=== PATIENT | male | born 1960 | race Caucasian/White ===

== ENCOUNTER 2016-06-07 11:36 | Emergency (ER) | payer BC ==
--- NOTE | 2016-06-07 12:09 | UC ---
Respiratory Complaint HPI - HPI Summary HPI Summary: 55 yo male with PMH presents with c/o illness starting 3 days ago with nasal congestion, mild sore throat, generalized weakness/body aches, eyes burning, low energy, reports decreased appetite. Denies fever or chills. Has been able to eat normal consistency foods. No N/v/D. Denies dizziness, cough, sob or CP. Has been able to go about his normal work routine. Requests "zpack" for yearly sinus infection stating "Im trying to nip it in the butt early and avoid it". Pt very upset that I suggested this is a viral illnesses stating "you'll be sorry when I come back in 3 days sick as a dog". Discussed the difference between viral illness and bacterial illnesses and that it is too early to diagnose ABRS. Patient left the room upset in the middle of our conversation walking out to the front waiting room, the nurse was able to give him the discharge paperwork in which he signed. - History of Current Complaint Stated Complaint: SORE THROAT/SINUS COMPLAINT Time Seen by Provider: 06/07/16 12:03 Hx Obtained From: Patient Onset/Duration: Gradual Onset - 3 days ago Severity Initially: Mild Severity Currently: Mild Pain Intensity: 2 Pain Scale Used: 0-10 Numeric Aggravating Factors: Nothing Alleviating Factors: Nothing Associated Signs And Symptoms: Positive: Nasal Congestion - Risk Factors Pulmonary Embolism Risk Factors: Negative Cardiac Risk Factors: Negative Pseudomonas Risk Factors: Negative Tuberculosis Risk Factors: Negative - Allergies/Home Medications Allergies/Adverse Reactions: Allergies Allergy/AdvReac Type Severity Reaction Status Date / Time No Known Allergies Allergy Verified 06/05/15 06:22 PMH/Surg Hx/FS Hx/Imm Hx Previously Healthy: Yes Endocrine History Of: Denies: Diabetes Cardiovascular History Of: Denies: Hypertension, Pacemaker/ICD GI/ History Of: Denies: Renal Disease - Surgical History Surgical History: Yes Surgery Procedure, Year, and Place: hernia. hydrocele. testicle removed. cholecystectomy. L thumb amputation - Family History Known Family History: Positive: Hypertension - Social History Occupation: Employed Full-time Lives: With Family Alcohol Use: Weekly Alcohol Amount: 6-12 beers Substance Use Type: None Smoking Status (MU): Never Smoked Tobacco Have You Smoked in the Last Year: No - Immunization History Most Recent Influenza Vaccination: none Hx Tetanus, Diphtheria Vaccination: Yes Vaccination Up to Date: Yes Review of Systems Constitutional: Other - generalized malaise, nasal congestion, mild sore throat Skin: Negative Eyes: Negative ENT: Sore Throat, Nasal Discharge Respiratory: Negative Cardiovascular: Negative Gastrointestinal: Negative Genitourinary: Negative Motor: Negative Neurovascular: Negative Musculoskeletal: Negative Neurological: Negative Psychological: Negative All Other Systems Reviewed And Are Negative: Yes Physical Exam Triage Information Reviewed: Yes Appearance: Well-Appearing, No Pain Distress, Well-Nourished Vital Signs Reviewed: Yes Eyes: Positive: Conjunctiva Clear ENT: Positive: Normal ENT inspection, Hearing grossly normal, Pharynx normal, TMs normal. Negative: Nasal congestion, Tonsillar exudate Neck: Positive: Supple, Nontender, No Lymphadenopathy Respiratory: Positive: Chest non-tender, Lungs clear, Normal breath sounds, No respiratory distress, No accessory muscle use Cardiovascular: Positive: RRR, No Murmur, Pulses Normal, Brisk Capillary Refill Musculoskeletal: Positive: Strength Intact, ROM Intact Neurological Exam: Normal Neurological: Positive: Alert Psychological Exam: Other - anxious, upset UC Diagnostic Evaluation - Laboratory Diagnostic Studies Comment: Influenza negative Respiratory Course/Dx - Course Course Of Treatment: supportive treatment - Differential Dx/Diagnosis Differential Diagnosis/HQI/PQRI: Sinusitis Provider Diagnoses: 1. Viral Syndrome Discharge - Discharge Plan Condition: Stable Disposition: HOME Patient Education Materials: Viral Syndrome (ED) Referrals: Sandy Amanda MD [Primary Care Provider] - (follow up in 2-3 days.) Additional Instructions: You have a viral syndrome and it is too early to call this acute bacterial sinusitis. Per guidelines you have to have symptoms for 7 days before ABS can be diagnosed. Your influenza is negative. Symptoms of acute rhinosinusitis (ARS) include nasal congestion and obstruction , purulent nasal discharge, maxillary tooth discomfort, and facial pain or pressure that is worse or localized to the sinuses when bending forward . Other signs and symptoms include fever, fatigue, cough, ear pressure or fullness, headache, and halitosis. May also have signs and symptoms of eustachian tube dysfunction (eg, ear pain, fullness or pressure, hearing loss, or tinnitus). Please see your primary or return here if you have worsening or concerning symptoms. Supportive treatments: nasal washes, facial steams, rest, keep well hydrated.
[2016-06-07 12:12] VITALS: BP 148/86
== END 2016-06-07 12:54 | disposition home or self-care (01) ==
LOC: UCCORT 11:36
DX: B34.9 Viral infection, unspecified (principal); Z90.49 Acquired absence of other specified parts of digestive tract
CPT/HCPCS: 87502; 99211; G0463